=== PATIENT | female | born 1940 | race Caucasian/White ===

== ENCOUNTER 2020-02-23 03:55 | Inpatient (IN) ==
[2020-02-23] MEDS ORDERED: ACETAMINOPHEN 325 MG TABLET PO PRN (06:41)
[2020-02-23] MEDS ORDERED: HYDROmorphone 2 MG/1 ML VIAL IV PRN ×3 (06:41→12:00)
[2020-02-23] MEDS ORDERED: MAGNESIUM SULF RIDER 4 GM in PREMIX 1 EACH IV PRN (06:41)
[2020-02-23] MEDS ORDERED: hydrALAZINE 20 MG/1 ML VIAL IV PRN (06:41)
[2020-02-23] MEDS ORDERED: MAGNESIUM SULF RIDER 2 GM in PREMIX 1 EACH IV PRN (06:41)
[2020-02-23] MEDS ORDERED: ONDANSETRON 4 MG/2 ML VIAL IV PRN (06:41)
[2020-02-23 07:05] LABS: Basophils % 0.3 % (0.0-0.8); Hematocrit 30.9 VOL% (35.7-47.0); Hemoglobin 9.7 GM/DL (12.0-16.0); Immature Granulocytes % 0.5 %; Immature Granulocytes Absolute 0.07 #; Lymphocytes # 1.9 10*3/uL (1.4-4.0); Lymphocytes % 14.4 % (21.3-54.2); Mean Corpuscular HGB Conc 31.4 GM/DL (32-36); Mean Corpuscular Volume 81.3 FL (87-102); Mean Platelet Volume 11.5 FL (9.6-12.0); Monocytes % 9.6 % (1.7-12.7); Neutrophils % 75.2 % (38.7-73.9); Platelet Count 315 T/CUMM (130-400); White Blood Count 13.1 T/CUMM (4-12)
[2020-02-23] MEDS ORDERED: ceFAZolin 1,000 MG in SYRINGE 1 EACH IV ONE (07:06)
[2020-02-23 07:33] LABS: INR 1.1; PT Patient Result 11.4 SECS (9.8-11.9)
[2020-02-23] MEDS ORDERED: DIAZEPAM 5 MG TABLET PO ONE (07:37)
[2020-02-23] MEDS ORDERED: FAMOTIDINE 20 MG TABLET PO ONE (07:37)
[2020-02-23 07:42] LABS: Albumin 3.8 G/DL (3.4-5.0); Bilirubin,Total 1.4 MG/DL (0.2-1.0); Osmolality,Calculated 282.4 MOS/KG (273-304)
[2020-02-23] MEDS: SODIUM CHLORIDE 0.9% 1,000 ML IV SCH ×3 (07:48→22:10)
[2020-02-23] MEDS ORDERED: DEXMEDETOMIDINE 200 MCG/2 ML VIAL ONE (10:28)
[2020-02-23] MEDS ORDERED: BUPIVACAINE SPINAL 0.75% 2 ML AMP SPINAL ONE (10:28)
[2020-02-23] MEDS ORDERED: LACTULOSE 20 GM/30 ML UDCUP PO PRN (11:45)
[2020-02-23] MEDS ORDERED: BISACODYL 10 MG SUPP RECTAL PRN (11:45)
[2020-02-23] MEDS ORDERED: diphenhydrAMINE CAP 25 MG CAPSULE PO PRN (11:45)
[2020-02-23] MEDS ORDERED: PROMETHAZINE 25 MG/1 ML VIAL IM PRN (11:45)
[2020-02-23] MEDS ORDERED: KETAMINE 500 MG/10 ML VIAL ONE (11:59)
[2020-02-23] MEDS ORDERED: MIDAZOLAM 2 MG/2 ML VIAL ONE (11:59)
[2020-02-23] MEDS ORDERED: fentaNYL 100 MCG/2 ML VIAL ONE (12:00)
[2020-02-23] MEDS ORDERED: PHENYLEPHRINE 1 MG/10 ML SYRINGE IV ONE (12:00)
[2020-02-23] MEDS ORDERED: ePHEDrine 50 MG/ML AMP ONE (12:00)
[2020-02-23] MEDS ORDERED: DEXAMETHASONE 4 MG/1 ML VIAL ONE (12:01)
[2020-02-23] MEDS ORDERED: ROPIVACAINE 0.5% 30 ML VIAL ONE (12:01)
[2020-02-23 12:54] LABS: Elliptocytes Few; Microcytosis 2+; Platelet Estimate Adequate; Tear Drop Cells 2+
[2020-02-23] MEDS: MELOXICAM 7.5 MG TABLET PO SCH (22:06)
[2020-02-23] MEDS: MULTIVITAMIN (CENTRUM) TABLET PO SCH (22:06)
[2020-02-23] MEDS: PANTOPRAZOLE 40 MG TABLET PO SCH (22:06)
[2020-02-23] MEDS: RALOXIFENE 60 MG TABLET PO SCH (22:06)
[2020-02-23] MEDS: SIMVASTATIN 10 MG TABLET PO SCH (22:06)
[2020-02-23] MEDS: MIRTAZAPINE 30 MG TABLET PO SCH (22:06)
[2020-02-23] MEDS: POTASSIUM GLUCONATE 500 MG TABLET PO SCH (22:06)
[2020-02-23] MEDS: SERTRALINE 100 MG TABLET PO SCH (22:07)
[2020-02-23] MEDS: hydroCHLOROthiazide 12.5 MG CAPSULE PO SCH (22:07)
[2020-02-23] MEDS: CALCIUM (CARBONATE) 600 MG TABLET PO SCH (22:07)
[2020-02-23] MEDS: ceFAZolin 1,000 MG in SYRINGE 1 EACH IV SCH (22:07)
[2020-02-24] MEDS: ceFAZolin 1,000 MG in SYRINGE 1 EACH IV SCH ×2 (03:11→11:45)
[2020-02-24] MEDS: FONDAPARINUX 2.5 MG/0.5 ML SYRINGE SUBCUT SCH (05:40)
[2020-02-24 06:37] LABS: Basophils % 0.2 % (0.0-0.8); Eosinophils % 0.3 % (0.00-10.9); Hematocrit 25.1 VOL% (35.7-47.0); Hemoglobin 7.9 GM/DL (12.0-16.0); Immature Granulocytes % 0.3 %; Immature Granulocytes Absolute 0.03 #; Lymphocytes % 21.3 % (21.3-54.2); Mean Corpuscular HGB Conc 31.5 GM/DL (32-36); Mean Corpuscular Volume 81.8 FL (87-102); Mean Platelet Volume 11.6 FL (9.6-12.0); Monocytes % 12.7 % (1.7-12.7); Neutrophils % 65.2 % (38.7-73.9); Platelet Count 242 T/CUMM (130-400); Red Blood Count 3.07 MC/CUMM (3.8-5.5); White Blood Count 9.4 T/CUMM (4-12)
[2020-02-24 06:57] LABS: Calcium 8.3 MG/DL (8.5-10.1); Osmolality,Calculated 277.5 MOS/KG (273-304)
[2020-02-24] MEDS: SODIUM CHLORIDE 0.9% 1,000 ML IV SCH (12:05)
[2020-02-24 12:34] LABS: Ovalocytes Few; Polychromasia Slight
[2020-02-24 12:36] LABS: Basophilic Stippling Few; Hypochromasia 3+; Platelet Estimate Adequate
[2020-02-24] MEDS: PANTOPRAZOLE 40 MG TABLET PO SCH (20:57)
[2020-02-24] MEDS: CALCIUM (CARBONATE) 600 MG TABLET PO SCH (20:58)
[2020-02-24] MEDS: MELOXICAM 7.5 MG TABLET PO SCH (20:58)
[2020-02-24] MEDS: SERTRALINE 100 MG TABLET PO SCH (20:58)
[2020-02-24] MEDS: DOCUSATE SODIUM 100 MG CAPSULE PO PRN (20:58)
[2020-02-24] MEDS: MULTIVITAMIN (CENTRUM) TABLET PO SCH (20:58)
[2020-02-24] MEDS: SIMVASTATIN 10 MG TABLET PO SCH (20:58)
[2020-02-24] MEDS: hydroCHLOROthiazide 12.5 MG CAPSULE PO SCH (20:58)
[2020-02-24] MEDS: POTASSIUM GLUCONATE 500 MG TABLET PO SCH (20:58)
[2020-02-24] MEDS: MIRTAZAPINE 30 MG TABLET PO SCH (20:59)
[2020-02-24] MEDS: RALOXIFENE 60 MG TABLET PO SCH (20:59)
[2020-02-25] MEDS: SODIUM CHLORIDE 0.9% 1,000 ML IV SCH ×2 (01:41→13:29)
[2020-02-25] MEDS: FONDAPARINUX 2.5 MG/0.5 ML SYRINGE SUBCUT SCH (06:02)
[2020-02-25 06:55] LABS: Hematocrit 27.6 VOL% (35.7-47.0); Hemoglobin 8.9 GM/DL (12.0-16.0)
[2020-02-25] MEDS: POTASSIUM CHLORIDE RIDER 10 MEQ in PREMIX 1 EACH IV PRN ×4 (07:08→17:07)
[2020-02-25] MEDS ORDERED: POTASSIUM CHLORIDE 20 MEQ TABLET PO ONE (08:17)
[2020-02-25] MEDS: RALOXIFENE 60 MG TABLET PO SCH (22:10)
[2020-02-25] MEDS: MELOXICAM 7.5 MG TABLET PO SCH (22:10)
[2020-02-25] MEDS: MIRTAZAPINE 30 MG TABLET PO SCH (22:11)
[2020-02-25] MEDS: PANTOPRAZOLE 40 MG TABLET PO SCH (22:11)
[2020-02-25] MEDS: SERTRALINE 100 MG TABLET PO SCH (22:11)
[2020-02-25] MEDS: hydroCHLOROthiazide 12.5 MG CAPSULE PO SCH (22:11)
[2020-02-25] MEDS: POTASSIUM GLUCONATE 500 MG TABLET PO SCH (22:11)
[2020-02-25] MEDS: MULTIVITAMIN (CENTRUM) TABLET PO SCH (22:11)
[2020-02-25] MEDS: CALCIUM (CARBONATE) 600 MG TABLET PO SCH (22:11)
[2020-02-25] MEDS: SIMVASTATIN 10 MG TABLET PO SCH (22:11)
[2020-02-26 05:49] LABS: Calcium 9.2 MG/DL (8.5-10.1)
[2020-02-26] MEDS: FONDAPARINUX 2.5 MG/0.5 ML SYRINGE SUBCUT SCH (06:00)
[2020-02-26] MEDS: POTASSIUM CHLORIDE RIDER 10 MEQ in PREMIX 1 EACH IV PRN ×2 (06:59→09:58)
[2020-02-26] MEDS: SODIUM CHLORIDE 0.9% 1,000 ML IV SCH ×2 (07:51→19:35)
[2020-02-26] MEDS: MAGNESIUM HYDROXIDE SUSP 30 ML UDCUP PO PRN ×2 (13:28→21:21)
[2020-02-26] MEDS ORDERED: TUBERCULIN SKIN TEST 0.1 ML SYRINGE INTRADERM ONE (16:00)
[2020-02-26] MEDS: SERTRALINE 100 MG TABLET PO SCH (21:21)
[2020-02-26] MEDS: RALOXIFENE 60 MG TABLET PO SCH (21:21)
[2020-02-26] MEDS: PANTOPRAZOLE 40 MG TABLET PO SCH (21:21)
[2020-02-26] MEDS: POTASSIUM GLUCONATE 500 MG TABLET PO SCH (21:21)
[2020-02-26] MEDS: hydroCHLOROthiazide 12.5 MG CAPSULE PO SCH (21:21)
[2020-02-26] MEDS: MELOXICAM 7.5 MG TABLET PO SCH (21:21)
[2020-02-26] MEDS: MULTIVITAMIN (CENTRUM) TABLET PO SCH (21:21)
[2020-02-26] MEDS: SIMVASTATIN 10 MG TABLET PO SCH (21:22)
[2020-02-26] MEDS: CALCIUM (CARBONATE) 600 MG TABLET PO SCH (21:22)
[2020-02-26] MEDS: MIRTAZAPINE 30 MG TABLET PO SCH (21:22)
[2020-02-27] MEDS: FONDAPARINUX 2.5 MG/0.5 ML SYRINGE SUBCUT SCH (05:14)
[2020-02-27] MEDS: MAGNESIUM HYDROXIDE SUSP 30 ML UDCUP PO PRN (09:23)
[2020-02-27] MEDS: DOCUSATE SODIUM 100 MG CAPSULE PO PRN (09:23)
[2020-02-27] MEDS: SODIUM CHLORIDE 0.9% 1,000 ML IV SCH (10:39)
[2020-02-27 11:49] VITALS: BP 104/51
== END 2020-02-27 15:56 | DRG 481 ==
LOC: EDBD → EDUNIT# → N.ED 03:55 → N.EDINP 05:16 → SUATTDRO 05:16 → N.3E 06:05
PROVIDERS: ADMIT Internal Medicine; ATTEND Internal Medicine Geriatric Medicine

== ENCOUNTER 2021-04-17 13:53 | Observation (INO) ==
[2021-04-17 16:08] LABS: Basophils % 0.2 % (0.0-0.8); Eosinophils # 0.1 10*3/uL (0.0-0.87); Hematocrit 32.4 VOL% (35.7-47.0); Hemoglobin 10.4 GM/DL (12.0-16.0); Immature Granulocytes % 0.2 %; Immature Granulocytes Absolute 0.01 #; Lymphocytes # 1.5 10*3/uL (1.4-4.0); Lymphocytes % 24.6 % (21.3-54.2); Mean Corpuscular HGB Conc 32.1 GM/DL (32-36); Mean Corpuscular Volume 78.3 FL (87-102); Monocytes % 9.8 % (1.7-12.7); Neutrophils % 64.2 % (38.7-73.9); Platelet Count 139 T/CUMM (130-400); Red Blood Count 4.14 MC/CUMM (3.8-5.5); White Blood Count 5.9 T/CUMM (4-12)
[2021-04-17 16:33] LABS: Albumin 3.5 G/DL (3.4-5.0); Bilirubin,Total 0.9 MG/DL (0.20-1.00); Calcium 8.7 MG/DL (8.5-10.1); Osmolality,Calculated 284.8 MOS/KG (273-304); Total Protein 6.5 G/DL (6.4-8.2)
[2021-04-17 16:35] LABS: Potassium 2.5 MMOL/L (3.5-5.1)
[2021-04-17 17:41] LABS: Bilirubin,Urine Negative (Negative); Blood, Urine Negative (Negative); Glucose,Urine (UA) Negative (Negative); Ketones,Urine Negative (Negative); Mucus,Urine Few /LPF (Occasional); Nitrite,Urine Negative (Negative); Protein,Urine Negative; RBC,Urine 2 /HPF (0-4); Squamous Epithelial Cell,Urine Occasional /HPF (0-10); Urine Appearance CLEAR (Clear); Urine Color Yellow (Yellow); Urine Specific Gravity 1.014 (1.001-1.035); Urine Urobilinogen < 2.0 EU/DL (0.2-1.0)
[2021-04-17 17:42] LABS: Barbiturates Screen,Urine Negative (Negative); Benzodiazepines Screen,Urine Negative (Negative); Cannabinoid Screen,Urine Negative (Negative); Opiate Screen,Urine Negative (Negative); Phencyclidine Screen,Urine Negative (Negative)
[2021-04-17] MEDS ORDERED: GLUCAGON 1 MG VIAL IM PRN (17:56)
[2021-04-17] MEDS ORDERED: ONDANSETRON 4 MG/2 ML VIAL IV PRN (17:56)
[2021-04-17] MEDS ORDERED: DEXTROSE 50% 25 GM/50 ML VIAL IV PRN (17:56)
[2021-04-17] MEDS ORDERED: LACTULOSE 20 GM/30 ML UDCUP PO PRN (17:56)
[2021-04-17] MEDS ORDERED: hydrALAZINE 20 MG/1 ML VIAL IV PRN (17:56)
[2021-04-17] MEDS ORDERED: ACETAMINOPHEN 325 MG TABLET PO PRN (17:56)
[2021-04-17] MEDS: ENOXAPARIN 40 MG/0.4 ML SYRINGE SUBCUT SCH (18:42)
[2021-04-17] MEDS: SODIUM CHLOR 0.9% KCL 40 MEQ 40 MEQ/1,000 ML BAG IV SCH (18:43)
[2021-04-17 20:04] LABS: Lymphocytes 26 % (20-55); Segmented Neutrophils 70 % (50-85); Total Cells Counted 100
[2021-04-17 20:07] LABS: Hypochromasia Slight; Microcytosis 1+; Ovalocytes 1+; Target Cells Slight
[2021-04-17 20:08] LABS: Platelet Estimate Decreased; Schistocytes 1+; Tear Drop Cells Slight
[2021-04-18] MEDS ORDERED: SODIUM CHLORIDE 0.9% 500 ML IV ONE (00:16)
[2021-04-18] MEDS: SODIUM CHLOR 0.9% KCL 40 MEQ 40 MEQ/1,000 ML BAG IV SCH ×2 (04:34→15:48)
[2021-04-18 06:25] LABS: Basophils % 0.4 % (0.0-0.8); Eosinophils # 0.2 10*3/uL (0.0-0.87); Eosinophils % 3.4 % (0.00-10.9); Hematocrit 29.7 VOL% (35.7-47.0); Hemoglobin 9.4 GM/DL (12.0-16.0); Immature Granulocytes % 0.4 %; Immature Granulocytes Absolute 0.02 #; Lymphocytes # 1.7 10*3/uL (1.4-4.0); Lymphocytes % 31.7 % (21.3-54.2); Mean Corpuscular HGB Conc 31.6 GM/DL (32-36); Mean Corpuscular Volume 79.4 FL (87-102); Mean Platelet Volume 11.6 FL (9.6-12.0); Neutrophils % 51.1 % (38.7-73.9); Platelet Count 354 T/CUMM (130-400); Red Blood Count 3.74 MC/CUMM (3.8-5.5); White Blood Count 5.2 T/CUMM (4-12)
[2021-04-18 06:51] LABS: Calcium 7.9 MG/DL (8.5-10.1); Osmolality,Calculated 289.4 MOS/KG (273-304)
[2021-04-18] MEDS ORDERED: POTASSIUM CHLORIDE 20 MEQ TABLET PO ONE (08:13)
[2021-04-18] MEDS: PANTOPRAZOLE 40 MG TABLET PO SCH (10:21)
[2021-04-18 12:11] LABS: Elliptocytes Few; Hypochromasia 4+; Microcytosis 3+; Schistocytes Slight; Target Cells Few; Tear Drop Cells Few
[2021-04-18 12:12] LABS: Platelet Estimate Normal
[2021-04-18] MEDS ORDERED: MECLIZINE 25 MG TABLET PO PRN (15:27)
[2021-04-18] MEDS: QUEtiapine 25 MG TABLET PO SCH (18:48)
[2021-04-18] MEDS: ENOXAPARIN 40 MG/0.4 ML SYRINGE SUBCUT SCH (18:48)
[2021-04-18] MEDS ORDERED: LOVASTATIN 20 MG TABLET PO SCH (21:00)
[2021-04-18] MEDS: ROSUVASTATIN 10 MG TABLET PO SCH (21:03)
[2021-04-18] MEDS: SERTRALINE 100 MG TABLET PO SCH (21:03)
[2021-04-18] MEDS: MULTIVITAMIN (CENTRUM) TABLET PO SCH (21:03)
[2021-04-18] MEDS: MELOXICAM 7.5 MG TABLET PO SCH (21:03)
[2021-04-18] MEDS: RALOXIFENE 60 MG TABLET PO SCH (21:03)
[2021-04-18] MEDS: MIRTAZAPINE 30 MG TABLET PO SCH (21:03)
[2021-04-18] MEDS: CALCIUM (CARBONATE) 500 MG TABLET PO SCH (21:04)
[2021-04-18] MEDS ORDERED: POTASSIUM CHLORIDE 20 MEQ TABLET PO PRN (23:37)
[2021-04-19 06:42] LABS: Basophils % 0.3 % (0.0-0.8); Eosinophils # 0.3 10*3/uL (0.0-0.87); Eosinophils % 4.3 % (0.00-10.9); Hematocrit 31.6 VOL% (35.7-47.0); Immature Granulocytes % 0.3 %; Immature Granulocytes Absolute 0.02 #; Lymphocytes # 1.9 10*3/uL (1.4-4.0); Lymphocytes % 28.4 % (21.3-54.2); Mean Corpuscular HGB Conc 31.6 GM/DL (32-36); Mean Corpuscular Volume 79.2 FL (87-102); Mean Platelet Volume 11.4 FL (9.6-12.0); Monocytes % 11.7 % (1.7-12.7); Platelet Count 386 T/CUMM (130-400); Red Blood Count 3.99 MC/CUMM (3.8-5.5); White Blood Count 6.5 T/CUMM (4-12)
[2021-04-19 07:03] LABS: Calcium 8.8 MG/DL (8.5-10.1); Osmolality,Calculated 291.3 MOS/KG (273-304); Potassium 3.7 MMOL/L (3.5-5.1); Risk Ratio 4.03; VLDL Cholesterol 31.8 MG/DL
[2021-04-19 09:30] LABS: Elliptocytes Few; Hypochromasia 2+; Microcytosis 2+; Ovalocytes Few; Platelet Estimate Normal; Polychromasia Slight
[2021-04-19] MEDS: DONEPEZIL 5 MG TABLET PO SCH (09:36)
[2021-04-19] MEDS: QUEtiapine 25 MG TABLET PO SCH ×2 (09:36→18:29)
[2021-04-19] MEDS: PANTOPRAZOLE 40 MG TABLET PO SCH (09:36)
[2021-04-19] MEDS ORDERED: POTASSIUM CHLORIDE 10 MEQ TABLET PO ONE (15:42)
[2021-04-19] MEDS: ENOXAPARIN 40 MG/0.4 ML SYRINGE SUBCUT SCH (18:29)
[2021-04-19] MEDS: CALCIUM (CARBONATE) 500 MG TABLET PO SCH (21:01)
[2021-04-19] MEDS: MELOXICAM 7.5 MG TABLET PO SCH (21:01)
[2021-04-19] MEDS: RALOXIFENE 60 MG TABLET PO SCH (21:02)
[2021-04-19] MEDS: MULTIVITAMIN (CENTRUM) TABLET PO SCH (21:02)
[2021-04-19] MEDS: SERTRALINE 100 MG TABLET PO SCH (21:02)
[2021-04-19] MEDS: MIRTAZAPINE 30 MG TABLET PO SCH (21:02)
[2021-04-19] MEDS: ROSUVASTATIN 10 MG TABLET PO SCH (21:02)
[2021-04-20 05:54] LABS: Calcium 8.9 MG/DL (8.5-10.1); Osmolality,Calculated 285.8 MOS/KG (273-304); Potassium 3.6 MMOL/L (3.5-5.1)
[2021-04-20] MEDS: PANTOPRAZOLE 40 MG TABLET PO SCH (08:17)
[2021-04-20] MEDS: DONEPEZIL 5 MG TABLET PO SCH (08:17)
[2021-04-20] MEDS: QUEtiapine 25 MG TABLET PO SCH ×2 (08:17→18:02)
[2021-04-20] MEDS: ENOXAPARIN 40 MG/0.4 ML SYRINGE SUBCUT SCH (18:02)
[2021-04-20] MEDS: ROSUVASTATIN 10 MG TABLET PO SCH (21:29)
[2021-04-20] MEDS: MIRTAZAPINE 30 MG TABLET PO SCH (21:29)
[2021-04-20] MEDS: RALOXIFENE 60 MG TABLET PO SCH (21:29)
[2021-04-20] MEDS: MULTIVITAMIN (CENTRUM) TABLET PO SCH (21:30)
[2021-04-20] MEDS: SERTRALINE 100 MG TABLET PO SCH (21:30)
[2021-04-20] MEDS: MELOXICAM 7.5 MG TABLET PO SCH (21:36)
[2021-04-20] MEDS: CALCIUM (CARBONATE) 500 MG TABLET PO SCH (21:36)
[2021-04-21] MEDS: DONEPEZIL 5 MG TABLET PO SCH (09:06)
[2021-04-21] MEDS: PANTOPRAZOLE 40 MG TABLET PO SCH (09:06)
[2021-04-21] MEDS: QUEtiapine 25 MG TABLET PO SCH ×2 (09:06→17:45)
[2021-04-21] MEDS: ENOXAPARIN 40 MG/0.4 ML SYRINGE SUBCUT SCH (17:45)
[2021-04-21] MEDS: ROSUVASTATIN 10 MG TABLET PO SCH (21:53)
[2021-04-21] MEDS: SERTRALINE 100 MG TABLET PO SCH (21:53)
[2021-04-21] MEDS: MIRTAZAPINE 30 MG TABLET PO SCH (21:53)
[2021-04-21] MEDS: MULTIVITAMIN (CENTRUM) TABLET PO SCH (21:53)
[2021-04-21] MEDS: MELOXICAM 7.5 MG TABLET PO SCH (21:54)
[2021-04-21] MEDS: CALCIUM (CARBONATE) 500 MG TABLET PO SCH (21:54)
[2021-04-21] MEDS: RALOXIFENE 60 MG TABLET PO SCH (21:54)
[2021-04-22] MEDS: PANTOPRAZOLE 40 MG TABLET PO SCH (08:46)
[2021-04-22] MEDS: QUEtiapine 25 MG TABLET PO SCH (08:46)
[2021-04-22] MEDS: DONEPEZIL 5 MG TABLET PO SCH (08:46)
[2021-04-22 09:00] VITALS: BP 135/69
== END 2021-04-22 10:49 ==
LOC: EDUNIT# → EDBD → N.EDINP 13:53 → N.ED 13:53 → SUATTDRO 17:56 → N.EDINP 19:50 → N.4E 19:55
PROVIDERS: ADMIT Internal Medicine; ATTEND Internal Medicine